=== PATIENT | male | born 1985 | race Caucasian/White ===

== ENCOUNTER 2021-07-10 18:00 | Emergency (ER) | payer SELFPAY ==
[~2021-07-10] VITALS: Ht 170.2 cm; Wt 80.0 kg
[2021-07-10] MEDS ORDERED: NALO4SPR BOTHNSTRLS (19:53)
[2021-07-10 20:00] VITALS: BP 138/91
== END 2021-07-10 20:06 | disposition home or self-care (01) ==
LOC: ER 18:00
DX: T40.2X1A Poisoning by other opioids, accidental (unintentional), initial encounter (principal); Y92.9 Unspecified place or not applicable
CPT/HCPCS: 99283

== ENCOUNTER 2021-07-30 06:36 | Emergency (ER) | payer MEDICAID ==
[~2021-07-30] VITALS: Ht 170.2 cm; Wt 73.0 kg
[~2021-07-30 06:36] MED LIST: NALO4SPR BOTHNSTRLS
[2021-07-30 09:16] VITALS: BP 131/89
== END 2021-07-30 09:18 | disposition home or self-care (01) ==
LOC: ER 06:36
DX: S01.01XA Laceration without foreign body of scalp, initial encounter (principal); M54.2 Cervicalgia; H53.8 Other visual disturbances; Y00.XXXA Assault by blunt object, initial encounter; Y93.89 Activity, other specified; Y92.89 Other specified places as the place of occurrence of the external cause; F11.90 Opioid use, unspecified, uncomplicated
CPT/HCPCS: 12002; 99284